=== PATIENT | male | born 1965 | race American Indian/Alaskan Native ===

== ENCOUNTER 2019-08-02 23:38 | Emergency (ER) | payer SELFPAY ==
[2019-08-03] MEDS ORDERED: ACETAMINOPHEN 325 MG TAB PO ONE (00:18)
[2019-08-03] MEDS ORDERED: ACETAMINOPHEN 325 MG TAB ONE (00:19)
[2019-08-03 00:44] LABS: Basophils # (Auto) 0.1 K/mm3 (0.0-0.1); Basophils % (Auto) 0.5 % (0.0-1.8); Eosinophils # (Auto) 0.1 K/mm3 (0.0-0.4); Hematocrit 40.8 % (35.5-45.6); Hemoglobin 13.9 gm/dl (11.8-15.2); Mean Corpuscular HGB Conc 34 % (32-34); Mean Corpuscular Volume 97 fl (84-94); Monocytes # (Auto) 1.2 K/mm3 (0.0-0.8); Monocytes % (Auto) 8.3 % (0.0-7.3); Platelet Count 176 K/mm3 (140-440); Red Blood Count 4.21 M/mm3 (3.65-5.03)
[2019-08-03 01:05] LABS: BUN/Creatinine Ratio 6; Blood Urea Nitrogen 7 mg/dL (9-20); Calcium 9.3 mg/dL (8.4-10.2); Hemolysis Index 6
[2019-08-03] MEDS ORDERED: IBUPROFEN 600 MG TAB PO ONE (01:33)
[2019-08-03] MEDS ORDERED: CLINDAMYCIN 300 MG CAP PO ONE (01:33)
--- NOTE | 2019-08-03 01:33 | Emergency Department Report ---
ED General Adult HPI - General Chief complaint: Skin/Abscess/Foreign Body Stated complaint: SPIDER BITE RIGHT LEG Time Seen by Provider: 08/03/19 01:19 Source: patient, RN notes reviewed Mode of arrival: Ambulatory Limitations: No Limitations - History of Present Illness Initial comments: Primary care /HIV : Taiwo meyer [facility] [place] This is a pleasant 54-year-old gentleman, history of HIV, reports undetectable viral load, on antiviral therapy, presenting to the ER with a complaint of nontraumatic right distal lateral leg redness and swelling, concerned that he was "bit by a spider." His symptoms have been presents for 4-5 days. He was no fever. There is no nausea or vomiting. There is no chest pain or shortness of breath. He has sharp throbbing right lateral proximal lower extremity pain, with surrounding erythema, warmth and discomfort. He has not really taken any pain medication at home [id number]. -: Gradual Location: right, lower extremity Radiation: non-radiation Severity scale (0 -10): 10 Consistency: intermittent Improves with: rest Worsens with: movement - Related Data Previous Rx's Medication Instructions Recorded Last Taken Type Cephalexin [Keflex] 500 mg PO QID #40 capsule 04/21/14 Unknown Rx Sulfamethoxazole/Trimethoprim 1 each PO BID #20 tablet 04/21/14 Unknown Rx [Bactrim Ds] traMADoL [Ultram 50 MG tab] 50 mg PO Q4HR PRN #12 tablet 04/21/14 Unknown Rx Acetaminophen [Non-Aspirin Extra 500 mg PO Q6HR PRN #30 tablet 08/03/19 Unknown Rx Strength] Clindamycin [Clindamycin CAP] 300 mg PO Q6H #28 capsule 08/03/19 Unknown Rx Ibuprofen [Motrin] 600 mg PO Q8H PRN #30 tablet 08/03/19 Unknown Rx Allergies Allergy/AdvReac Type Severity Reaction Status Date / Time No Known Allergies Allergy Unverified 04/21/14 14:43 ED Review of Systems ROS: Stated complaint: SPIDER BITE RIGHT LEG Other details as noted in HPI Constitutional: denies: fever Eyes: denies: eye discharge ENT: denies: congestion Respiratory: denies: wheezing Cardiovascular: denies: syncope Gastrointestinal: denies: nausea, vomiting Genitourinary: denies: dysuria Musculoskeletal: arthralgia, myalgia Skin: lesions Psychiatric: anxiety Hematological/Lymphatic: denies: easy bleeding ED Past Medical Hx - Surgical History Past Surgical History?: No - Social History Smoking Status: Current Every Day Smoker Substance Use Type: Alcohol, Marijuana - Medications Home Medications: Home Medications Medication Instructions Recorded Confirmed Last Taken Type Cephalexin [Keflex] 500 mg PO QID #40 capsule 04/21/14 Unknown Rx Sulfamethoxazole/Trimethoprim 1 each PO BID #20 tablet 04/21/14 Unknown Rx [Bactrim Ds] traMADoL [Ultram 50 MG tab] 50 mg PO Q4HR PRN #12 tablet 04/21/14 Unknown Rx Acetaminophen [Non-Aspirin Extra 500 mg PO Q6HR PRN #30 tablet 08/03/19 Unknown Rx Strength] Clindamycin [Clindamycin CAP] 300 mg PO Q6H #28 capsule 08/03/19 Unknown Rx Ibuprofen [Motrin] 600 mg PO Q8H PRN #30 tablet 08/03/19 Unknown Rx ED Physical Exam - General Limitations: No Limitations, Other (chaperoned by BO Raiv) General appearance: alert, anxious - Head Head exam: Present: atraumatic, normocephalic - Eye Eye exam: Present: normal appearance, EOMI. Absent: nystagmus - ENT ENT exam: Present: normal exam, normal orophraynx, mucous membranes moist, normal external ear exam - Neck Neck exam: Present: normal inspection, full ROM. Absent: tenderness, meningismus - Respiratory Respiratory exam: Present: normal lung sounds bilaterally. Absent: respiratory distress - Cardiovascular Cardiovascular Exam: Present: regular rate, normal rhythm, normal heart sounds. Absent: bradycardia, tachycardia, irregular rhythm, systolic murmur, diastolic murmur, rubs, gallop - GI/Abdominal GI/Abdominal exam: Present: soft. Absent: distended, tenderness, guarding, rebound, rigid, pulsatile mass - Rectal Rectal exam: Present: deferred - Extremities Exam Extremities exam: Present: tenderness (on the right proximal lateral lower extremity, there is a central area of dried necrotic tissue, with surrounding erythema, without pus, crepitus, or fluctuance. Essential area of cellulitis appears to be 6 cm in diameter. There is no streaking at this time.), other (2+ pulses noted in the bilateral upper and lower extremities. The pelvis is stable. There is no long bony tenderness. The muscular compartments are soft. There is no redness, pus, streaking or erythema.). Absent: calf tenderness - Back Exam Back exam: Present: normal inspection. Absent: tenderness, CVA tenderness (R), CVA tenderness (L), paraspinal tenderness, vertebral tenderness - Neurological Exam Neurological exam: Present: alert, oriented X3, normal gait, other (there is no facial droop. The tongue is midline. Extraocular movements are intact bilaterally. Speaking in full sentences. Hearing is grossly intact. 5 out of 5 strength bilateral upper and lower extremities. Sensation is intact to light touch bilateral upper and lower extremities.). Absent: motor sensory deficit - Psychiatric Psychiatric exam: Present: normal affect, normal mood - Skin Skin exam: Present: warm, erythema ED Course Vital Signs 08/02/19 08/03/19 08/03/19 23:47 00:12 00:20 Temperature 98.0 F 98 F Pulse Rate 108 H 108 H Respiratory 19 18 18 Rate Blood Pressure 114/85 114/85 Blood Pressure [Left] O2 Sat by Pulse 97 97 Oximetry 08/03/19 01:55 Temperature 97.5 F L Pulse Rate 92 H Respiratory 15 Rate Blood Pressure Blood Pressure 117/80 [Left] O2 Sat by Pulse 100 Oximetry ED Medical Decision Making - Lab Data Result diagrams: 08/03/19 00:28 08/03/19 00:28 Vital Signs 08/02/19 08/03/19 08/03/19 23:47 00:12 00:20 Temperature 98.0 F 98 F Pulse Rate 108 H 108 H Respiratory 19 18 18 Rate Blood Pressure 114/85 114/85 Blood Pressure [Left] O2 Sat by Pulse 97 97 Oximetry 08/03/19 01:55 Temperature 97.5 F L Pulse Rate 92 H Respiratory 15 Rate Blood Pressure Blood Pressure 117/80 [Left] O2 Sat by Pulse 100 Oximetry Lab Results 08/03/19 08/03/19 08/03/19 Range/Units 00:28 00:28 01:19 WBC 14.8 H (4.5-11.0) K/mm3 RBC 4.21 (3.65-5.03) M/mm3 Hgb 13.9 (11.8-15.2) gm/dl Hct 40.8 (35.5-45.6) % MCV 97 H (84-94) fl MCH 33 H (28-32) pg MCHC 34 (32-34) % RDW 16.0 H (13.2-15.2) % Plt Count 176 (140-440) K/mm3 Lymph % (Auto) 20.0 (13.4-35.0) % [place] % (Auto) 8.3 H (0.0-7.3) % Eos % (Auto) 1.0 (0.0-4.3) % Baso % (Auto) 0.5 (0.0-1.8) % Lymph # 3.0 (1.2-5.4) K/mm3 [place] # 1.2 H (0.0-0.8) K/mm3 Eos # 0.1 (0.0-0.4) K/mm3 Baso # 0.1 (0.0-0.1) K/mm3 Seg Neutrophils % 70.2 H (40.0-70.0) % Seg Neutrophils # 10.4 H (1.8-7.7) K/mm3 Sodium 137 (137-145) mmol/L Potassium 4.5 (3.6-5.0) mmol/L Chloride 99.1 (98-107) mmol/L Carbon Dioxide 26 (22-30) mmol/L Anion Gap 16 mmol/L BUN 7 L (9-20) mg/dL Creatinine 1.1 (0.8-1.5) mg/dL Estimated GFR > 60 ml/min BUN/Creatinine Ratio 6 % Glucose 87 (75-100) mg/dL Calcium 9.3 (8.4-10.2) mg/dL Total Creatine Kinase 118 (55-170) units/L - Medical Decision Making Differential diagnosis, including but not limited to: Cellulitis Assessment and plan: 54-year-old gentleman who is afebrile with reassuring vital signs, resolved tachycardia, with right lower extremity cellulitis, without physical exam evidence of abscess at this time, no evidence of compartment syndrome or neurovascular compromise. He felt improved after appropriate oral medication. He is suitable for trial of oral antibiotics. The wound was demarcated with a skin marker, and he indicates that he is reliable to follow-up with an outpatient primary care doctor. Return precautions were reviewed. Critical care attestation.: If time is entered above; I have spent that time in minutes in the direct care of this critically ill patient, excluding procedure time. ED Disposition Clinical Impression: Cellulitis of leg, right Disposition: [id number] TO HOME OR SELFCARE Is pt being admited?: No Does the pt Need Aspirin: No Condition: Stable Instructions: Cellulitis (ED) Additional Instructions: Continue current outpatient medications. Perform weightbearing and physical activities as tolerated. Patient may alternate ice packs and heat packs to the right lower extremity. Follow-up in 2 days for a repeat checkup and evaluation. Please return to the emergency room right away with projectile vomiting, change in mental status, confusion, new pain, worsened pain, migration of pain, worsening streaking, redness, warmth, pain, pus, or new symptoms not present on the initial emergency room evaluation. Patient may wash patient may wash the right lower extremity with gentle soap and water. Please do not apply lotion. Forms: Work/School Release Form(ED)
[2019-08-03 01:56] VITALS: BP 117/80
== END 2019-08-03 02:35 | disposition home or self-care (01) ==
LOC: ED 23:38
DX: L03.115 Cellulitis of right lower limb (principal); F17.200 Nicotine dependence, unspecified, uncomplicated; F12.10 Cannabis abuse, uncomplicated
CPT/HCPCS: 36415; 80048; 82550; 85025; 99283